=== PATIENT | male | born 1950 | race Caucasian/White ===

== ENCOUNTER 2025-08-08 10:47 | Emergency (ER) | payer OTHER ==
[~2025-08-08] VITALS: Ht 180.3 cm; Wt 91.6 kg
[2025-08-08] MEDS: IV NS 0.9% 500 ML BAG IV ONE (11:05)
[2025-08-08 11:24] LABS: PLATELET COUNT (AUTO) 256 K/uL (150-450); RED BLOOD CELL COUNT(AUTO) 5.89 MIL/uL (4.5-6.0); RED CELL DISTRIBUTION WIDTH 14.4 % (11.5-15.0); WHITE BLOOD COUNT (AUTO) 10.9 K/uL (4.3-11.0)
[2025-08-08 11:34] LABS: ASPARTATE AMINOTRANSFERASE 35 U/L (15-37); CALCIUM, SERUM 8.7 mg/dL (8.5-10.1); SODIUM SERUM 132 mmol/L (136-145); TOTAL PROTEIN, SERUM 8.3 g/dL (6.4-8.2); UREA NITROGEN, BLOOD 12 mg/dL (7-18)
[2025-08-08 11:55] LABS: LACTIC ACID 2.3 mmol/L (0.4-2.0)
[2025-08-08 12:00] LABS: CREATININE 0.7 mg/dL (0.6-1.3)
[2025-08-08] MEDS ORDERED: CEFTRIAXONE 1GM BAG (ER ONLY) 50 ML IV ONE (12:56)
[2025-08-08] MEDS: CEFTRIAXONE 1 G in IV D5W 50 ML IV ONE (13:13)
[2025-08-08] MEDS: IV NS 0.9% 1,000 ML BAG IV ONE (13:13)
[2025-08-08] MEDS ORDERED: ACETAMINOPHEN ES 500 MG TABLET ONE (13:15)
[2025-08-08] MEDS: ACETAMINOPHEN ES 500 MG TABLET PO ONE (13:22)
[2025-08-08 15:00] VITALS: BP 158/71; TEMP 98.5; O2SAT 96
== END 2025-08-08 15:01 | disposition short-term general hospital (02) ==
LOC: ER 10:59
DX: A41.9 Sepsis, unspecified organism (principal); E87.1 Hypo-osmolality and hyponatremia; Z20.822 Contact with and (suspected) exposure to COVID-19
CPT/HCPCS: 99285; 96365; 96361; 71045; 87426; 87804 ×2; 85025; 80048; 87040 ×2; 83605; 80076; 36415; 84484 ×2; J0696 ×2; J7060; J7030; J7050; J7040 ×2